=== PATIENT | female | born 1960 | race Caucasian/White ===

== ENCOUNTER → 2018-10-06 | Outpatient (CLI) | payer OTHER ==
[~2018-10-06] MED LIST: ? ANTIDEPRESSANT; Ativan1 MG SL; Cymbalta60 MG PO; DOXY100 PO; FLUO10 PO; HYDACE5 PO; OMEPRAZOLE MAGN20 MG PO; Omeprazole20 M1 PO; RXCLIN PO; Ultram50 MG PO; ZOLP5 PO; Zofran Odt4 MG SL
[2018-10-06 18:12] LABS: BASOPHILS ABSOLUTE AUTO 0.06 K/mm3 (0.00-0.23); BASOPHILS PERCENT AUTO 1 % (0-2); EOSINOPHILS ABSOLUTE AUTO 0.15 K/mm3 (0.00-0.68); EOSINOPHILS PERCENT AUTO 2 % (0-6); Hematocrit 39.9 % (33.0-51.0); Hemoglobin 13.1 g/dL (11.5-16.0); IMMATURE GRAN ABSOLUTE AUTO 0.03 K/mm3 (0.00-0.10); IMMATURE GRAN PERCENT AUTO 0 % (0-1); LYMPHOCYTES ABSOLUTE AUTO 2.01 K/mm3 (0.84-5.20); LYMPHOCYTES PERCENT AUTO 27 % (21-46); MONOCYTES ABSOLUTE AUTO 0.45 K/mm3 (0.16-1.47); MONOCYTES PERCENT AUTO 6 % (4-13); Mean Corpuscular HGB 30.2 pg (26.0-34.0); Mean Corpuscular HGB Conc 32.8 g/dL (31.5-36.5); Mean Corpuscular Volume 92 fL (80-100); Mean Platelet Volume 10.1 fL (9.1-12.4); NEUTROPHILS ABSOLUTE AUTO 4.73 K/mm3 (1.96-9.15); NEUTROPHILS PERCENT AUTO 64 % (41-73); Platelet Count 309 K/mm3 (150-400); RDW Coefficient Variation 12.4 % (11.7-14.2); RDW Standard Deviation 41.9 fL (35.1-46.3); Red Blood Cell Count 4.34 M/mm3 (3.80-5.20); White Blood Cell Count 7.43 K/mm3 (4.00-11.30)
[2018-10-06 18:48] LABS: Free Thyroxine 0.94 ng/dL (0.70-1.60)
[2018-10-06 18:54] LABS: Alanine Aminotransfer (ALT/SGP 26 U/L (12-78); Alk Phos 80 U/L (50-136); Anion Gap 7 mmol/L (6-16); Aspartate Aminotrans (AST/SGOT 17 U/L (12-37); Bilirubin, Total 0.3 mg/dL (0.1-1.0); Blood Urea Nitrogen 13 mg/dL (8-24); CO2, Blood 28 mmol/L (21-32); Calcium, Blood 9.5 mg/dL (8.5-10.1); Chloride, Blood 102 mmol/L (98-108); Creatinine, Blood 0.68 mg/dL (0.40-1.00); Globulin, Blood 3.9 g/dL (2.2-4.0); Glomerular Filtration Rate >60 (60-); Glucose, Blood 91 mg/dL (70-99); Potassium, Blood 3.9 mmol/L (3.5-5.5); Sodium, Blood 137 mmol/L (136-145); Total Protein, Blood 7.9 g/dL (6.4-8.2)
== END ==
LOC: LAB SHORT 17:54 → LAB 17:54
PROVIDERS: Nurse Practitioner Family
DX: R53.83 Other fatigue (principal)
CPT/HCPCS: 80053; 84439; 84443; 85025

== ENCOUNTER 2019-02-13 07:20 | Day surgery (SDC) | payer OTHER ==
[~2019-02-13] VITALS: Ht 152.4 cm; Wt 73.4 kg
[~2019-02-13 07:20] MED LIST changes: +NAPR220 PO
--- NOTE | 2019-02-13 07:56 | NUR ---
Ambulatory in Day Surgery. Patient states colon prep results clear. History, Chart, Medications and Allergies reviewed before start of procedure. Lungs clear T/O to Auscultation. Patient confirms NPO status and agrees with scheduled surgery. Pre-Op teaching done. Pt verbalizes understanding. Patient States Post-Procedure ride home has been arranged.
--- NOTE | 2019-02-13 08:11 | NUR ---
02/13/19 0811 [place] PATIENT DETERMINED TO BE ASA APPROPRIATE FOR PROPOFOL SEDATION PRIOR TO START OF PROCEDURE BY . 3-LEAD EKG REVIEWED WITH PHYSICIAN PRIOR TO START OF PROCEDURE.PATIENT CONFIRMS NPO STATUS AND AGREES WITH SCHEDULED PROCEDURE.History, Chart, Medications and Allergies reviewed before start of procedure.MONITOR INTACT WITH CONTINUOUS PULSE OXIMETRY AND INTERMITTENT BP.O2 VIA N/C INTACT THROUGHOUT SEDATION/PROCEDURE.HURRICAINE SPRAY TO OROPHARYX.Bite Block Placed
--- NOTE | 2019-02-13 09:07 | NUR ---
RESTING IN GURNEY. CHOOSES TO SLEEP, BUT ANSWERS QUESTIONS APPROPRIATLEY AND ALERT WHEN SPOKEN TO. BREATHING RA. NO C/O.
--- NOTE | 2019-02-13 09:30 | NUR ---
Discharge instructions reviewed with patient. Patient verbalizes understanding. Copy given to patient to take home. States she feels ready for getting up and going home. Tolerating juice. No c/o. Friend to drive home.
--- NOTE | 2019-02-13 09:39 | NUR ---
0932- UP TO DRESS. GAIT STEADY. VSS.
== END 2019-02-13 22:35 | disposition home or self-care (01) ==
LOC: ORSCMMR 07:20 → ORD 08:30 → ORSCMMR 22:35
PROVIDERS: Internal Medicine Gastroenterology
PROC: 0DBN8ZX Excision of Sigmoid Colon, Via Natural or Artificial Opening Endoscopic, Diagnostic (ICD-10-PCS; principal; 2019-02-13 08:30)
PROC: 0DB98ZX Excision of Duodenum, Via Natural or Artificial Opening Endoscopic, Diagnostic (ICD-10-PCS; principal; 2019-02-13 08:30)
PROC: 0DB48ZX Excision of Esophagogastric Junction, Via Natural or Artificial Opening Endoscopic, Diagnostic (ICD-10-PCS; principal; 2019-02-13 08:30)
PROC: 0DB58ZX Excision of Esophagus, Via Natural or Artificial Opening Endoscopic, Diagnostic (ICD-10-PCS; principal; 2019-02-13 08:30)
DX: K21.0 Gastro-esophageal reflux disease with esophagitis (principal); K29.70 Gastritis, unspecified, without bleeding; K44.9 Diaphragmatic hernia without obstruction or gangrene; Z12.11 Encounter for screening for malignant neoplasm of colon; K63.5 Polyp of colon; G47.33 Obstructive sleep apnea (adult) (pediatric); F32.9 Major depressive disorder, single episode, unspecified; Z79.899 Other long term (current) drug therapy; Z87.891 Personal history of nicotine dependence
CPT/HCPCS: 88305; 88312; 88342; J2250; J3010; J7120

== ENCOUNTER 2022-04-19 00:34 | Inpatient (IN) | payer OTHER ==
[~2022-04-19] VITALS: Ht 154.9 cm; Wt 67.0 kg
[2022-04-19 01:25] LABS: BASOPHILS ABSOLUTE AUTO 0.15 K/mm3 (0.00-0.23); BASOPHILS PERCENT AUTO 1 % (0-2); EOSINOPHILS ABSOLUTE AUTO 0.87 K/mm3 (0.00-0.68); EOSINOPHILS PERCENT AUTO 6 % (0-6); Hematocrit 42.9 % (33.0-51.0); Hemoglobin 14.3 g/dL (11.5-16.0); IMMATURE GRAN ABSOLUTE AUTO 0.02 K/mm3 (0.00-0.10); IMMATURE GRAN PERCENT AUTO 0 % (0-1); LYMPHOCYTES ABSOLUTE AUTO 6.41 K/mm3 (0.84-5.20); LYMPHOCYTES PERCENT AUTO 46 % (21-46); MONOCYTES ABSOLUTE AUTO 0.65 K/mm3 (0.16-1.47); MONOCYTES PERCENT AUTO 5 % (4-13); Mean Corpuscular HGB 28.1 pg (26.0-34.0); Mean Corpuscular HGB Conc 33.3 g/dL (31.5-36.5); Mean Corpuscular Volume 84 fL (80-100); Mean Platelet Volume 9.7 fL (9.1-12.4); NEUTROPHILS ABSOLUTE AUTO 5.85 K/mm3 (1.96-9.15); NEUTROPHILS PERCENT AUTO 42 % (41-73); Platelet Count 502 K/mm3 (150-400); RDW Coefficient Variation 12.8 % (11.7-14.2); RDW Standard Deviation 39.3 fL (35.1-46.3); Red Blood Cell Count 5.08 M/mm3 (3.80-5.20); White Blood Cell Count 13.95 K/mm3 (4.00-11.30)
[2022-04-19 01:44] LABS: Acetaminophen, Random <2.0 ug/mL (10.0-30.0); Alanine Aminotransfer (ALT/SGP 18 U/L (12-78); Albumin, Blood 4.1 g/dL (3.4-5.0); Albumin/Globulin Ratio 1.3 (0.8-1.8); Alk Phos 120 U/L (50-136); Anion Gap 12 mmol/L (6-16); Aspartate Aminotrans (AST/SGOT 17 U/L (12-37); Bilirubin, Total 0.4 mg/dL (0.1-1.0); Blood Urea Nitrogen 11 mg/dL (8-24); Bun/Creatinine Ratio 14.6 (12.0-20.0); CO2, Blood 25 mmol/L (21-32); Calcium, Blood 9.1 mg/dL (8.5-10.1); Chloride, Blood 106 mmol/L (98-108); Creatinine, Blood 0.75 mg/dL (0.40-1.00); Ethanol (Alcohol), Blood, Med 213 mg/dL; Free Thyroxine 1.03 ng/dL (0.70-1.60); Globulin, Blood 3.2 g/dL (2.2-4.0); Glomerular Filtration Rate 92 (60-); Glucose, Blood 147 mg/dL (70-99); Potassium, Blood 3.1 mmol/L (3.5-5.5); Salicylate <1.7 mg/dL (2.8-20.0); Sodium, Blood 143 mmol/L (136-145); Total Protein, Blood 7.3 g/dL (6.4-8.2)
[2022-04-19 06:46] LABS: Albumin, Blood 3.3 g/dL (3.4-5.0); Albumin/Globulin Ratio 1.2 (0.8-1.8); Bilirubin, Total 1.6 mg/dL (0.1-1.0); Bun/Creatinine Ratio 15.1 (12.0-20.0); Calcium, Blood 8.4 mg/dL (8.5-10.1); Creatinine, Blood 1.06 mg/dL (0.40-1.00); Globulin, Blood 2.8 g/dL (2.2-4.0); Potassium, Blood 3.7 mmol/L (3.5-5.5); Total Protein, Blood 6.1 g/dL (6.4-8.2)
[2022-04-19 07:00] LABS: Hematocrit 38.8 % (33.0-51.0); Hemoglobin 12.9 g/dL (11.5-16.0)
--- NOTE | 2022-04-19 07:21 | NUR ---
ARRIVAL TO ICU PT ARRIVED TO ICU 11 AT 0615 VIA ED BED AND TRANSFERED OVER TO ICU BED BY SLIDE SHEET. PT IS RESPONSIVE TO STERNAL RUB AND OCCATIONALLY REPOSITIONING; PT HAS NOT SPOKE AND HAS NOT ANSWERED Y/N QUESTIONS; PT EYES WILL OPEN AND LOOK AROUND BUT SHE IS NOT MAKING EYE CONTACT WITH STAFF OR FOLLOWING DIRECTIONS. SPO2 >98% ON RA. HR 100-130. SBP 120'S, MAP >65; LEVOPHED INFUSING AT 5MCG/MIN. HOUSING RELOCATION REPORTED THAT DURING THE TRANSFER TO ICU PT STARTED HAVING COFFEE GROUND EMISIS; THIS WAS SHOWN ON PT GOWN AND RUNNING DOWN MOUTH; ORAL CARE DONE; PT REACTIVE TO ORAL CARE AND CLAMPS DOWN TEETH; H&H DRAWN, AWAITING RESULTS. KCL INFUSING. SITTER AT BEDSIDE. RESTRAINTS PUT IN PLACE DUE TO PT SPONTANIOUSLY REACHING FOR CENTRAL LINE IN LT GROIN. LT GROIN DRESSING C/D/I. REPORT GIVEN TO AM RN.
--- NOTE | 2022-04-19 07:36 | NUR ---
POISON CONTROL UPDATED POISON CONTROL AT 0645. RECOMMENDATION IF PT QTC PROLONGS TO KEEP POTASSIUM >4.0 AND MAG >2. THEY STATED THAT THEY WILL CALL BACK LATER TODAY.
--- NOTE | 2022-04-19 09:33 | NUR ---
SUMMARY OF THIS AM: PT HAS BEEN UNRESPONSIVE, OPENS EYES AND WITHDRAWS TO PAINFUL STIMULI. PT DOES NOT FOCUS ON VOICE, DOES NOT TRACK, PUPILS ARE SLUGGISH, MAEW, NOREPINEPHRINE IS TITRATED TO MAP >65, CURRENTLY AT 8MCG/MIN. LR @ 100ML/HR. LUNG SOUNDS ARE COARSE, ABDOMEN SOFT, NON TENDER, PT WITH COFFEE GROUND RETURN IN MOUTH X 2. NO EVIDENCE OF WRETCHING OR COUGHING. AND ROUNDED. FEMORAL CENTRAL LINE INTACT, ATTENDS IN PLACE. RIGHT AC PIV,C/D/I. HEART RATE 110'S. SONOROUS RESPIRATIONS WHEN ON HER BACK, LYING ON HER RIGHT SIDE CURRENTLY. SITTER OUTSIDE THE ROOM.
--- NOTE | 2022-04-19 09:56 | NUR ---
MOMENTS AGO PATIENT WAS SCRATCHING HER HEAD, UPON ENTERING ROOM AND SAYING HER NAME, SHE OPENED HER EYES AND LOOKED DIRECTLY AT ME. I SAID GOOD MORNING, SHE SAID SLOAN. WAS UNABLE TO GET HER TO ANSWER ANY OTHER QUESTIONS, SHE WAS PULLING AT THE BP CUFF, WHEN TOLD TO BE STILL AND LET IT FINISH TAKING, SHE COOPERATED. THEN RETURNED TO SNORING WITH EYE FLUTTERING.
[2022-04-19 12:12] LABS: Hematocrit 37.7 % (33.0-51.0); Hemoglobin 12.6 g/dL (11.5-16.0)
--- NOTE | 2022-04-19 12:25 | NUR ---
PT RESTLESS, ASKED IF NEEDED TO USE THE BEDPAN, NODDED. ATTEMPTED TO DO SO, MISSED BEDPAN, LINEN CHANGED. PT CONTINUES TO MOAN WHEN MOVING OR TOUCHED ON THE LEGS. PT MORE ALERT THAN EARLIER BUT EYES REMAIN TWITTERING AND DIFFICULT FOR PT TO STAY AWAKE. BP STABLE AT 8MCG/MIN NOREPINEPHRINE. SATS 98% ON RA.
[2022-04-19 12:30] LABS: Bun/Creatinine Ratio 19.4 (12.0-20.0); Creatinine, Blood 1.03 mg/dL (0.40-1.00); Magnesium, Blood 2.1 mg/dL (1.6-2.4); Potassium, Blood 4.1 mmol/L (3.5-5.5)
--- NOTE | 2022-04-19 13:07 | NUR ---
AT THE BEDSIDE, PT RESTLESS. NOT ENGAGING WITH PATIENT, ASKING WHEN SHE WILL BE FED. WHEN SHE WILL WAKE UP. JUST SITTING AND STARING AT HER.
--- NOTE | 2022-04-19 13:57 | NUR ---
PT MORE ALERT, SHE STATED SHE WAS AT THE HOSPITAL, WOULDN'T ANSWER WHY. ASKED IF SHE KNEW HOW MANY PILLS SHE TOOK, SHE SHOOK HER HEAD, NO.
--- NOTE | 2022-04-19 14:15 | NUR ---
PT STATES SHE'S "TRYING TO WAKE UP". SAID THAT IT IS OKAY FOR HER TO VISIT. SMILES. SHE LOOKS AWAY WHILE TALKING.
--- NOTE | 2022-04-19 14:34 | NUR ---
PT ASKED TO USE THE BATHROOM, USED BEDPAN WITH ASSISTANCE, DID WELL.
--- NOTE | 2022-04-19 16:14 | NUR ---
PT CALLED TO USE THE BEDPAN, ASSISTED WITH POSITIONING. PLEASANT AND SMILING.
--- NOTE | 2022-04-19 17:10 | NUR ---
PT IS AWAKE AND COMMUNICATING WITH STAFF. ASKS FOR TO BE CALLED TO COME AND SEE HER. PT'S CALLED, NO ANSWER, VOICEMAIL NOT SET UP. PT ASKED ME TO CALL HER PHONE, VOICEMAIL LEFT. PT IS OPTING TO TRY TO EAT HER SUPPER.
--- NOTE | 2022-04-19 17:39 | NUR ---
ADELE HAS IMPROVED REMARKEDLY FROM THIS AM. SHE IS ALERT AND CONVERSING WITH HER SPOUSE AND WITH STAFF. SHE IS UNRESTRAINED AND APPROPRIATE. SHE TRIED TO TAKE IN SOME DINNER, IS COOPERATIVE WITH THE STAFF. USING THE BEDPAN APPROPRIATELY. NOREPINEPHRINE REMAINS AT 8MCG/MIN, LR @ 100 TO LEFT GROIN CL. EKG REPEATED PER RECOMMENDATION OF POISON CONTROL, WHO HAS CALLED TO CHECK IN ON PATIENT X2 THIS SHIFT. TEMP REMAINS NORMAL, BP MAP >65. HR 100'S. RESP RATE 16-24 DEPENDING ON CIRCUMSTANCE. DENIES ANY NEEDS AT THIS TIME, TAKING IN SOME SPRITE. LUNGS CLEAR, BELLY ACTIVE.
[2022-04-19 18:50] LABS: Source, Urine Clean Catch
[2022-04-19 19:05] LABS: Appearance, Urine Hazy (Clear); Bilirubin, Urine Neg (Neg); Blood, Urine Neg (Neg); Glucose Qualitative, Urine Neg (Neg); Ketones, Urine 1+ (Neg); Leukocyte Esterase, Urine 1+ (Neg); Nitrite, Urine Pos (Neg); Protein, Urine 1+ (Neg); Specific Gravity, Urine 1.015 (1.003-1.022); Urobilinogen, Urine NORM (Normal)
[2022-04-19 19:11] LABS: Color, Urine Pale Yellow (P-Yellow)
[2022-04-19 19:13] LABS: Bacteria Many /hpf; Mucus Light (0-Heavy); Red Blood Cells, Urine 0-2 /hpf (0-2); Squamous Epithelial Cells Rare /hpf (Few)
[2022-04-19 19:14] LABS: Hyaline Casts 0-2 /lpf (0-2)
[2022-04-19 19:18] LABS: U Amphetamine Screen DETECTED; U Barbituate Screen Not Detected; U Benzodiazapine Screen Not Detected; U Buprenorphine Screen Not Detected; U Cannabinoids Screen Not Detected; U Cocaine Screen Not Detected; U Methadone Screen Not Detected; U Methamphetamine Screen DETECTED; U Opiates Screen Not Detected; U Oxycodone Screen Not Detected; U Phencyclidine Screen Not Detected; U Propoxyphene Screen Not Detected
--- NOTE | 2022-04-19 20:18 | NUR ---
PERSONAL BELONGINGS CALL WAS MADE TO ER REGARDING PERSONAL BELONGINGS IN THE CRISIS UNIT. THE FOLLOWING ITEMS ARRIVED TO ICU IN A BA NAVY BLUE SWIMSUIT TOP 1 LIGHT BLUE PAIR OF SHORTS 1 JAY ZIP UP HOODIE 1 PAIR OF SOCKS 1 PAIR OF WHITE SHOES 2 RINGS (ONE SILVER BAND WITH LEAVES/ ONE YELLOW BAND WITH STONES) PT MENTIONED THAT SHE HAD $40 ON HER WHEN SHE CAME TO THE HOSPITAL. WHEN LOOKING THROUGH HER ITEMS THIS WAS NOT FOUND. THIS RN TOLD THE PT THAT THERE WAS NOT $40 FOUND IN BELONGING IN WHICH SHE REPLIED "THEN THE MONEY MUST BE ON MY DRESSER AND MY FOUND IT".
--- NOTE | 2022-04-19 20:43 | NUR ---
ASSUMED CARE AT 1900 PT LAYING IN BED SLEEPING BUT WAKES UP EASILY TO VERBAL STIMULATION. PT IS ALERT/ORIENTED X4 AND ABLE TO MAKE HER NEEDS KNONW. PT STATES THAT SHE HAS NOT HAD ANY THOUGHTS OF HARMING HERSELF AND HAS NO PLAN TO HARM HERSELF. NO C/O PAIN OR DISCOMFORT. SPO2 >98% ON RA. HR 100-110. SBP 100'S; MAP 65-70; LEVOPHED INFUSING AT 8MCG/MIN. NO C/O NAUSEA, ABD TENDER TO PALPATION, PT DESCRIBES TENDERNESS A "BRUISE"; TOLERATING PO INTAKE. LR INFUSING AT 100ML/HR. CENTRAL LINE TO LT GROIN DRESSING C/D/I. SITTER AT BEDSIDE. SEE SHIFT ASSESSMENT FOR FULL ASSESSMENT.
--- NOTE | 2022-04-19 23:05 | NUR ---
POISON CONTROL JEFF CALLED FROM POISON CONTROL AND WAS GIVEN AN UPDATE. NO NEW RECOMMENDATIONS AT THIS TIME.
[2022-04-20 04:39] LABS: BASOPHILS ABSOLUTE AUTO 0.07 K/mm3 (0.00-0.23); BASOPHILS PERCENT AUTO 0 % (0-2); EOSINOPHILS ABSOLUTE AUTO 0.05 K/mm3 (0.00-0.68); EOSINOPHILS PERCENT AUTO 0 % (0-6); Hematocrit 33.7 % (33.0-51.0); Hemoglobin 11.6 g/dL (11.5-16.0); IMMATURE GRAN ABSOLUTE AUTO 0.08 K/mm3 (0.00-0.10); IMMATURE GRAN PERCENT AUTO 0 % (0-1); LYMPHOCYTES ABSOLUTE AUTO 1.85 K/mm3 (0.84-5.20); LYMPHOCYTES PERCENT AUTO 9 % (21-46); MONOCYTES ABSOLUTE AUTO 1.28 K/mm3 (0.16-1.47); MONOCYTES PERCENT AUTO 6 % (4-13); Mean Corpuscular HGB 29.1 pg (26.0-34.0); Mean Corpuscular HGB Conc 34.4 g/dL (31.5-36.5); Mean Corpuscular Volume 85 fL (80-100); Mean Platelet Volume 9.7 fL (9.1-12.4); NEUTROPHILS PERCENT AUTO 84 % (41-73); Platelet Count 399 K/mm3 (150-400); RDW Coefficient Variation 13.9 % (11.7-14.2); RDW Standard Deviation 42.8 fL (35.1-46.3); Red Blood Cell Count 3.98 M/mm3 (3.80-5.20); White Blood Cell Count 20.63 K/mm3 (4.00-11.30)
[2022-04-20 05:09] LABS: Albumin/Globulin Ratio 1.1 (0.8-1.8); Bilirubin, Total 1.1 mg/dL (0.1-1.0); Bun/Creatinine Ratio 28.7 (12.0-20.0); Creatinine, Blood 0.98 mg/dL (0.40-1.00); Globulin, Blood 2.7 g/dL (2.2-4.0); Potassium, Blood 4.4 mmol/L (3.5-5.5); Total Protein, Blood 5.7 g/dL (6.4-8.2)
--- NOTE | 2022-04-20 05:55 | NUR ---
END OF SHIFT SUMMARY NO ACUTE EVENTS OVERNIGHT. SHE WAS ABLE TO SLEEP ON AND OFF T/O THE NIGHT. PT IS A/O X4 AND ABLE TO MAKE HER NEEDS KNOWN; PT HAS NOT HAD THOUGHTS OF HARMING SELF OR PLANS TO HARM SELF. NEW ORDER PROVIDED FOR TYLENOL FOR PT HEADACHE, TYLENOL HELPFUL. SPO2 >98% ON RA. HR 90-110. SBP 100-130; LEVOPHED INFUSING AT 6MCG/MIN. NO C/O NAUSEA; TOLERATING PO INTAKE. PT USES BEDPAN; REPOSITIONS WITH MINIMAL ASSISTANCE; VERBAL REMINDERS NEEDED. LR INFUSING AT 100ML/HR. CENTRAL LINE TO LT FEM DRESSING C/D/I. WILL REPORT TO AM RN WHEN AVAILABLE.
--- NOTE | 2022-04-20 08:00 | NUR ---
ASSUMED CARE OF PATIENT AT 0700, SHE WAS SLEEPING. SITTER AT DOOR. VSS. NOREPI GTT TURNED DOWN TO TITRATE FOR MAP>65. BREAKFAST TRAY BROUGHT IN, PT ENGAGING AND DENIES ANY SELF HARM OR PLANS FOR SUCH.
--- NOTE | 2022-04-20 11:40 | NUR ---
Pt interviewed at 11 am today ICU 11. Patient was alert and engaged in questions. Patient guarded regarding substance use, denied daily drinking. Nurse reports patient was positive for meth. Patient did not mention meth use. Denies previous attempts. Reports grateful she is alive. Patient called ambulance for herself after taking pills. Patient had been drinkin gwhit russians-estimates 5-6 drinks. 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 Lives with , Lion, son and 3 grandchildren who are moving out at the end of this month. Patient allowed to be present at tthis interview. Both report relief they will have house to themselves.Reports history of poor sleep, on Cymbalta for 10-12 years. Patient is future oriented. Unable to answer any other positive symptoms for depression. Looking forward to return to work..Does want a counselor. Carmen, Cutter Head Sharpener, informed and indicated appoinment with [employer] will be made. Do Albright M.Ed. [facility]
--- NOTE | 2022-04-20 13:24 | NUR ---
PT HAS BEEN TITRATED OFF THE NOREPINEPHRINE, UP TO COMMODE IN ROOM X 2. STEADY ON HER FEET. IV LR @ 100ML/HR CONTINUES. CENTRAL LINE C/D/I. PT DENIES ANY COMPLAINTS. MET WITH GREOGRY MALDONADO, REGARDING HER SAFETY PLAN, CAME IN DURING THEIR DISCUSSION. PT HAD SOME LUNCH, NOW IS TAKING A NAP. AWAIT VISIT FROM FOR FURTHER ORDERS.
--- NOTE | 2022-04-20 15:46 | NUR ---
IS HERE TO SEE THE PATIENT.
[2022-04-20 16:35] LABS: BASOPHILS ABSOLUTE AUTO 0.05 K/mm3 (0.00-0.23); BASOPHILS PERCENT AUTO 0 % (0-2); EOSINOPHILS ABSOLUTE AUTO 0.03 K/mm3 (0.00-0.68); EOSINOPHILS PERCENT AUTO 0 % (0-6); Hematocrit 31.2 % (33.0-51.0); Hemoglobin 10.3 g/dL (11.5-16.0); IMMATURE GRAN ABSOLUTE AUTO 0.02 K/mm3 (0.00-0.10); IMMATURE GRAN PERCENT AUTO 0 % (0-1); LYMPHOCYTES ABSOLUTE AUTO 1.04 K/mm3 (0.84-5.20); LYMPHOCYTES PERCENT AUTO 9 % (21-46); MONOCYTES ABSOLUTE AUTO 0.64 K/mm3 (0.16-1.47); MONOCYTES PERCENT AUTO 6 % (4-13); Mean Corpuscular HGB 28.1 pg (26.0-34.0); Mean Corpuscular Volume 85 fL (80-100); Mean Platelet Volume 9.4 fL (9.1-12.4); NEUTROPHILS ABSOLUTE AUTO 9.74 K/mm3 (1.96-9.15); NEUTROPHILS PERCENT AUTO 85 % (41-73); Platelet Count 262 K/mm3 (150-400); RDW Coefficient Variation 14.3 % (11.7-14.2); RDW Standard Deviation 44.2 fL (35.1-46.3); Red Blood Cell Count 3.67 M/mm3 (3.80-5.20); White Blood Cell Count 11.52 K/mm3 (4.00-11.30)
--- NOTE | 2022-04-20 17:57 | NUR ---
ADELE IS CURRENTLY NAPPING WHILE HER HAS GONE TO GET HER A HAMBURGER. SHE HAS BEEN RELEASED FROM 1:1, SAW HER, DR. MCELROY FOLLOWED UP WITH HER IN REGARDS TO THE COFFEE GROUND "EMESIS" FROM YESTERDAY. SHE WILL HAVE AN UPPER ENDOSCOPY TOMORROW MIDDAY, PLANNING TO GO HOME AFTER. SHE IS INDEPENDENT IN ROOM AND HAS BEEN DOWNGRADED TO MEDICAL STATUS, NO TELE. NO OTHER CHANGES THIS SHIFT.
--- NOTE | 2022-04-20 20:03 | NUR ---
ASSUMED CARE OF PT, REPORT RECEIVED. PT IS RESTING QUIETLY RECLINING IN BED WITH CALL LIGHT IN REACH. SHE DOES INQUIRE REGARDING THE ABILITY TO AMBULATE TO OUTSIDE, DISCUSSED IVF INFUSING AT THIS TIME AND NEED FOR STAYING INSIDE WHILE IVF IS INFUSING, PT AGREEABLE TO AWAITING DC OF IVF LATER THIS SHIFT. SHE DENIES OTHER NEEDS AT THIS TIME. WILL MONITOR.
[2022-04-21 04:26] LABS: BASOPHILS ABSOLUTE AUTO 0.04 K/mm3 (0.00-0.23); BASOPHILS PERCENT AUTO 1 % (0-2); EOSINOPHILS ABSOLUTE AUTO 0.12 K/mm3 (0.00-0.68); EOSINOPHILS PERCENT AUTO 2 % (0-6); Hematocrit 32.8 % (33.0-51.0); Hemoglobin 10.7 g/dL (11.5-16.0); IMMATURE GRAN ABSOLUTE AUTO 0.01 K/mm3 (0.00-0.10); IMMATURE GRAN PERCENT AUTO 0 % (0-1); LYMPHOCYTES ABSOLUTE AUTO 1.46 K/mm3 (0.84-5.20); LYMPHOCYTES PERCENT AUTO 21 % (21-46); MONOCYTES ABSOLUTE AUTO 0.39 K/mm3 (0.16-1.47); MONOCYTES PERCENT AUTO 6 % (4-13); Mean Corpuscular HGB 27.8 pg (26.0-34.0); Mean Corpuscular HGB Conc 32.6 g/dL (31.5-36.5); Mean Corpuscular Volume 85 fL (80-100); Mean Platelet Volume 9.5 fL (9.1-12.4); NEUTROPHILS ABSOLUTE AUTO 5.02 K/mm3 (1.96-9.15); NEUTROPHILS PERCENT AUTO 71 % (41-73); Platelet Count 229 K/mm3 (150-400); RDW Coefficient Variation 14.2 % (11.7-14.2); RDW Standard Deviation 43.9 fL (35.1-46.3); Red Blood Cell Count 3.85 M/mm3 (3.80-5.20); White Blood Cell Count 7.04 K/mm3 (4.00-11.30)
--- NOTE | 2022-04-21 05:55 | NUR ---
PT RESTS QUIETLY THROUGHOUT SHIFT. VITALS REMAIN STABLE. PT TO WATER ONLY AT 2100 FOLLOWING HER DINNER, TOLERATED WELL. PERIPHERAL IV ACCESS IN PLACE AND CENTRAL LINE WAS NO LONGER INDICATED, DC'D AT 2130 THIS SHIFT, PT TOLERATED WELL, SEE CENTRAL LINE DOCUMENTATION. PT DID HAVE LOOSE LIQUID STOOL X 2 THIS SHIFT THAT WERE BLACK IN COLOR, ON SCHEDULE FOR EGD AT [address] MCELROY. OTHERWISE NO ACUTE CHANGES THIS SHIFT.
--- NOTE | 2022-04-21 07:26 | NUR ---
AM NOTE... ASSUMED CARE OF PT AT 0700 THE PT IS A&Ox4 AND IND IN THE ROOM. THE PT'S VS STABLE AT THIS TIME. L/S CLEAR T/O WITH O2 SATS >95% ON RA. BT PRESENT AND HYPERACTIVE, ABD IS SOFT AND TENDER TO PALPATION TO THE LUQ. THE PT DENEIS ANY N/V AT THIS TIME. THE PT HAS NO EDEMA NOTED ON ASSESSMENT. THE PT CURRENTLY DENIES ANY PAIN. SOME OOZING IS NOTED TO THE LEFT GROIN SITE WHERE THE CENTRAL LINE WAS D/C'd LAST NIGHT. SHE IS TO HAVE AN EDG TODAY AT 1400 AND SHE IS TO BE NPO AT 1100. WILL CONTINUE TO MONITOR.
[2022-04-21 11:12] LABS: Influenza A, PCR NEGATIVE (NEGATIVE); Influenza B, PCR NEGATIVE (NEGATIVE); Resp Syncytial Virus, PCR NEGATIVE (NEGATIVE); SARS-Cov-2 (COVID-19) PCR, MMC NEGATIVE (NEGATIVE)
--- NOTE | 2022-04-21 16:42 | NUR ---
PT RECENTLY TO [facility] BY [facility]. History, Chart, Medications and Allergies reviewed before start of procedure.Lungs clear T/O to Auscultation. Patient confirms NPO status and agrees with scheduled surgery. Pre-Op teaching done. Pt verbalizes understanding.
--- NOTE | 2022-04-21 17:29 | NUR ---
04/21/22 1729 Ethel Rodney PRIOR TO PROCEDURE HISTORY, CHART, MEDICATIONS AND ALLERGIES REVIEWED BEFORE START OF PROCEDURE. PATIENT CONFIRMS NPO STATUS AND AGREES WITH SCHEDULED PROCEDURE. 3-LEAD EKG REVIEWED WITH PHYSICIAN PRIOR TO START OF PROCEDURE. MONITOR INTACT WITH CONTINUOUS PULSE OXIMETRY,CAPNOGRAPHY, 3-LEAD EKG, INTERMITTENT BP. SUPPLEMENTAL O2 TO BE TITRATED THROUGHOUT PROCEDURE TO MAINTAIN O2 SATURATION ABOVE 90%. PATIENT DETERMINED TO BE ASA APPROPRIATE FOR PROPOFOL SEDATION PRIOR TO START OF PROCEDURE BY DR. MCELROY
--- NOTE | 2022-04-21 18:13 | NUR ---
SHIFT SUMMARY... NO ACUTE NEGATIVE CHANGES NOTED THIS SHIFT. PT HAS DENIED ANY SI THIS SHIFT. THE PT'S VS HAVE BEEN STABLE T/O THIS SHIFT. THE PT WENT FOR AN EGD THIS AFTERNOON, RETURNED TO THE ROOM WITH STABLE VS. PLAN IS TO MONITOR FOR ANY SIGNS/SYMPTOMS OF BLEEDING AND IF STABLE D/C HOME TOMORROW. REPORT WAS GIVEN TO [id number] RN. ALL OF PT'S BELONGINGS PACKED AND WILL BE SENT WITH THE PT.
--- NOTE | 2022-04-22 04:25 | NUR ---
SHIFT SUMMARY NO ACUTE CHANGES SINCE ARRIVAL TO UNIT. PT RESTED WELL T/O NIGHT. INDEP TO BRP. DENIES BLOODY STOOLS/EMESIS. REPORTS MINIMAL ABD PAIN. CONT TO DENY SI. CALL LIGHT WITHIN REACH.
[2022-04-22 05:17] LABS: BASOPHILS ABSOLUTE AUTO 0.04 K/mm3 (0.00-0.23); BASOPHILS PERCENT AUTO 1 % (0-2); EOSINOPHILS ABSOLUTE AUTO 0.12 K/mm3 (0.00-0.68); EOSINOPHILS PERCENT AUTO 2 % (0-6); Hematocrit 32.5 % (33.0-51.0); Hemoglobin 10.8 g/dL (11.5-16.0); IMMATURE GRAN ABSOLUTE AUTO 0.01 K/mm3 (0.00-0.10); IMMATURE GRAN PERCENT AUTO 0 % (0-1); LYMPHOCYTES ABSOLUTE AUTO 1.45 K/mm3 (0.84-5.20); LYMPHOCYTES PERCENT AUTO 23 % (21-46); MONOCYTES PERCENT AUTO 6 % (4-13); Mean Corpuscular HGB 28.1 pg (26.0-34.0); Mean Corpuscular HGB Conc 33.2 g/dL (31.5-36.5); Mean Corpuscular Volume 85 fL (80-100); Mean Platelet Volume 9.8 fL (9.1-12.4); NEUTROPHILS PERCENT AUTO 68 % (41-73); Platelet Count 253 K/mm3 (150-400); RDW Coefficient Variation 13.9 % (11.7-14.2); RDW Standard Deviation 42.9 fL (35.1-46.3); Red Blood Cell Count 3.84 M/mm3 (3.80-5.20); White Blood Cell Count 6.32 K/mm3 (4.00-11.30)
[2022-04-22] MEDS ORDERED: TRAZ50 PO (10:04)
[2022-04-22] MEDS ORDERED: PROTONIX40 M9 PO (10:05)
[2022-04-22] MEDS ORDERED: Abreva2 GM TOP (10:07)
[2022-04-22] MEDS ORDERED: ACET325 PO (10:08)
--- NOTE | 2022-04-22 11:04 | NUR ---
SHIFT SUMMARY PT A&OX4 DURING D/C DIRECTION. PT SPOUSE @ BEDSIDE DURING DC DIRECTION. PT VERBALIZED UNDERSTANDING. PT SPOUSE TO PROVIDE TRANSPORT. PT DECLINED NEED FOR WC ESCORT, SPOUSE STATED HE CAN ESCORT. VSS. IV DC'ED. MEDS FAXED TO [facility], FOLLOW UP APPT. SCHEDULED, WORK NOTE PROVIDED IN DC FOLDER.
== END 2022-04-22 10:54 | disposition home or self-care (01) | DRG 917 ==
LOC: ER 00:34 → ERHOLD 02:48 → ICUW 02:48 → MEDS 04-21 19:23
PROVIDERS: Family Medicine; Internal Medicine; Internal Medicine Gastroenterology; Student in an Organized Health Care Education/Training Program; ADMIT Internal Medicine
PROC: 06HY33Z Insertion of Infusion Device into Lower Vein, Percutaneous Approach (ICD-10-PCS; 2022-04-19)
PROC: 3E043XZ Introduction of Vasopressor into Central Vein, Percutaneous Approach (ICD-10-PCS; 2022-04-19)
PROC: 0DB78ZX Excision of Stomach, Pylorus, Via Natural or Artificial Opening Endoscopic, Diagnostic (ICD-10-PCS; principal; 2022-04-21 15:45)
PROC: 0D738ZZ Dilation of Lower Esophagus, Via Natural or Artificial Opening Endoscopic (ICD-10-PCS; 2022-04-21 15:45)
DX: T43.212A Poisoning by selective serotonin and norepinephrine reuptake inhibitors, intentional self-harm, initial encounter (principal); K22.11 Ulcer of esophagus with bleeding; G93.40 Encephalopathy, unspecified; E86.0 Dehydration; I95.9 Hypotension, unspecified; E87.6 Hypokalemia; F32.9 Major depressive disorder, single episode, unspecified; G47.30 Sleep apnea, unspecified; Z98.890 Other specified postprocedural states; Z88.0 Allergy status to penicillin; Z79.899 Other long term (current) drug therapy; D72.828 Other elevated white blood cell count; K22.2 Esophageal obstruction; K44.9 Diaphragmatic hernia without obstruction or gangrene
CPT/HCPCS: 0241U; 36415; 36556; 80048; 80053; 81001; 83735; 84145; 84439; 84443; 85014; 85018; 85025; 88305; 88342; 93005; 93010; 96365-59; 96366-59; 96375-59; 99285-25; A9270; C1726; C1751; C9113; G0480; J1650; J2405; J2704; J3480; J7030; J7060; J7120